=== PATIENT | female | born 1990 | race Caucasian/White ===

== ENCOUNTER 2019-08-19 13:23 | Emergency (ER) | payer BC, SELFPAY ==
[2019-08-19 13:56] VITALS: BP 149/73; PULSE 95; RESP 20; TEMP 36.8; O2SAT 99
--- NOTE | 2019-08-19 14:40 | ED.GENADULT ---
HPI - General Adult General Chief complaint: Wound/Laceration Stated complaint: sore on upper r/thigh Time Seen by Provider: 08/19/19 14:40 Source: patient and RN notes reviewed Mode of arrival: ambulatory Limitations: no limitations History of Present Illness HPI narrative: 29-year-old female presents with complaints of a bump to RT anterior thigh with redness, tenderness, and swelling for the past 14 days. Prid and band-aids without relief. Increase erythema, tenderness, and warmth over the last 7 days per Delmis. Tender to touch. No drainage. History of skin abscess. No fever or chills. No abdominal pain, nausea, and vomiting. Remains active. Delmis denies being , LMP 08/15/19. Some parts of this dictation were generated by voice recognition software and may contain typographical and/or grammatical inaccuracies. Related Data Allergies Allergy/AdvReac Type Severity Reaction Status Date / Time morphine Allergy Unknown Verified 09/09/18 09:07 Penicillins Allergy Unknown Verified 09/09/18 09:07 Review of Systems Review of Systems: Narrative: CONSTITUTIONAL: Denies fever, chills, sweats. EYES: Denies visual changes, redness, discharge. ENT: Denies rhinorrhea, congestion, sore throat, otalgia. CARDIOVASCULAR: Denies chest pain, palpitations, edema. RESPIRATORY: Denies dyspnea, wheezing, cough. GASTROINTESTINAL: Denies abdominal pain, nausea, vomiting, diarrhea. GENITOURINARY: Denies dysuria, hematuria, abnormal discharge. SKIN: Denies rash or itching. Right thigh with redness, tenderness, swelling. Denies drainage. MUSCULOSKELETAL: Denies acute back pain, joint pain, or myalgia. NEUROLOGIC: Denies numbness or focal weakness. PSYCHIATRIC: Denies anxiety or depression. All systems reviewed & are unremarkable except as noted in HPI and below. [facility] Past Medical History Medical History (Updated 08/26/19 @ 17:29 by DALLAS Harris) Ankle fracture LT No significant past medical history Surgical History Surgical History (Updated 08/26/19 @ 17:29 by DALLAS Harris) History of arthroplasty of left ankle Family History Family History (Updated 08/26/19 @ 17:30 by DALLAS Harris) Father Hypertension Mother Hypertension Social History Social History (Updated 08/26/19 @ 17:31 by DALLAS Harris) Smoking status: Former smoker Second hand tobacco smoke exposure: No Substance use: never Living arrangements: with family Occupation/Education: occupation Gender identity (if verbalized by the patient): Female Comments At time of signature, I have reviewed and agree with nursing past medical, surgical, social, and family history. Please see nursing chart for further information. There is no relevant family history pertinent to the presenting complaint. Exam Narrative: Exam Narrative: GENERAL: This is a well-nourished, well-developed patient, in no apparent distress. Talking in full sentences without deficit and ambulate with steady gait without dyspnea. HEAD: normocephalic, atraumatic. EYES: PERRL. Sclera clear/white. Vision is grossly intact. NECK: Neck supple, non-tender without lymphadenopathy, masses or thyromegaly. CARDIOVASCULAR: Regular rate and rhythm without murmurs, gallops, or rubs. RESPIRATORY: Clear to auscultation. Breath sounds equal bilaterally. No wheezes, rales, or rhonchi. GASTROINTESTINAL: Abdomen soft, non-tender, nondistended. Bowel sounds are active. No hepato-splenomegaly, or palpable masses. No guarding. SKIN: warm, right anterior thigh with a 2cm x 4cm induration area with mild-moderate swelling, erythema, and warmth, no fluctuation or streaking. I&D not necessary at this time. Good texture and turgor. NEURO: awake, alert, and oriented to person, place and time. There were no obvious focal neurologic abnormalities. EXTREMITIES: No clubbing, cyanosis, or edema. No joint tenderness, effusion, or edema noted. [place] Coma Scale Eye Opening: Spontane
== END 2019-08-19 14:50 | disposition home or self-care (01) ==
PROVIDERS: Emergency Provider Nurse Practitioner Family
DX: L02.415 Cutaneous abscess of right lower limb (principal)
CPT/HCPCS: 99213; G0463